=== PATIENT | female | born 1950 | race Caucasian/White ===

== ENCOUNTER 2018-01-11 22:04 | Observation (INO) | payer MEDICARE ==
[~2018-01-11] VITALS: Ht 152.4 cm; Wt 76.8 kg
[2018-01-11 22:50] LABS: HEMATOCRIT 45.9 % (37.0-47.0); HEMOGLOBIN 15.2 g/dl (12.0-16.0); IMMATURE GRANULOCYTES 0.4 % (0.0-5.0); MEAN CELL VOLUME 90.5 fL CALC (80.0-100.0); MEAN CORPUSCULAR HGB CONC 33.1 g/L CALC (32.0-36.0); NEUT# 8.19 thou/uL (2.00-7.15); RED BLOOD COUNT 5.07 mill/uL (4.20-5.60); RED CELL DISTRI WIDTH 12.9 % (11.5-15.5)
[2018-01-11] MEDS ORDERED: OMEPRAZOLE20 MG PO (22:52)
[2018-01-11] MEDS ORDERED: SPIRONOLACTONE25 MG PO (22:53)
[2018-01-11] MEDS ORDERED: MECLIZINE25 MG PO (22:53)
[2018-01-11] MEDS ORDERED: LEVOTHYROXIN50 MCG PO (22:54)
[2018-01-11] MEDS ORDERED: SIMVASTATIN40 MG PO (22:54)
[2018-01-11] MEDS ORDERED: METOPROL TAR25 MG PO (22:55)
[2018-01-11 23:09] LABS: ALBUMIN 4.9 g/dL (3.2-5.0); ALKALINE PHOSPHATASE 170 u/l (38-126); ANION GAP 17 (6-22 (CALC)); BILIRUBIN, TOTAL 0.6 mg/dL (0.0-1.4); BUN 18 mg/dL (8-23); BUN/CREATININE RATIO 15 (12-20 (CALC)); CARBON DIOXIDE 22 mmol/l (22-30); CHLORIDE 104 mmol/l (95-108); CREATININE 1.2 mg/dL (0.5-1.0); GFR 45 ML/MIN (>=60 (CALC)); GFR FOR AFR.AMER. 54 ML/MIN (>=60 (CALC)); POTASSIUM 4.2 mmol/l (3.5-5.1); SGOT/AST 26 u/l (9-36); SGPT/ALT 32 u/l (11-66); SODIUM 139 mmol/l (137-146); TOTAL PROTEIN 8.8 g/dL (6.3-8.2)
[2018-01-11 23:21] LABS: MYOGLOBIN 26 ng/mL (0 - 62)
[2018-01-12] VITALS (7 sets, daily range): BP systolic 94–110; BP diastolic 62–67
[2018-01-12 11:30] LABS: CHOLESTEROL HDL RATIO 4.8 (<4.4 (CALC)); MAGNESIUM 2.1 mg/dL (1.6-2.3)
[2018-01-13 00:54] VITALS: BP 104/64
[2018-01-13 05:04] VITALS: BP 112/77
[2018-01-13 08:13] VITALS: BP 107/67
[2018-01-13 11:30] VITALS: BP 111/61
== END 2018-01-13 13:30 | disposition home or self-care (01) ==
LOC: ED 22:04 → ED-I 23:47 → ED 23:57 → MS2 23:58
PROVIDERS: Emergency Medicine; Nurse Practitioner Family; ADMIT Internal Medicine; ATTEND Internal Medicine
PROC: 3E0234Z Introduction of Serum, Toxoid and Vaccine into Muscle, Percutaneous Approach (ICD-10-PCS; principal; 2018-01-13)
DX: R07.89 Other chest pain (principal); I16.0 Hypertensive urgency; I10 Essential (primary) hypertension; E11.9 Type 2 diabetes mellitus without complications; G31.84 Mild cognitive impairment of uncertain or unknown etiology; E03.9 Hypothyroidism, unspecified; K21.9 Gastro-esophageal reflux disease without esophagitis; Z86.79 Personal history of other diseases of the circulatory system; Z23 Encounter for immunization

== ENCOUNTER 2018-01-21 20:39 | Inpatient (IN) | payer MEDICARE ==
[~2018-01-21] VITALS: Ht 152.4 cm; Wt 76.6 kg
[~2018-01-21 20:39] MED LIST: LEVOTHYROXIN50 MCG PO; MECLIZINE25 MG PO; METOPROL TAR25 MG PO; OMEPRAZOLE20 MG PO; SIMVASTATIN40 MG PO; SPIRONOLACTONE25 MG PO
[2018-01-21 21:33] LABS: HEMATOCRIT 46.2 % (37.0-47.0); HEMOGLOBIN 15.3 g/dl (12.0-16.0); IMMATURE GRANULOCYTES 0.6 % (0.0-5.0); MEAN CELL VOLUME 90.9 fL CALC (80.0-100.0); MEAN CORPUSCULAR HGB 30.1 pG CALC (26.0-32.0); MEAN CORPUSCULAR HGB CONC 33.1 g/L CALC (32.0-36.0); NEUT# 9.04 thou/uL (2.00-7.15); RED BLOOD COUNT 5.08 mill/uL (4.20-5.60); RED CELL DISTRI WIDTH 12.3 % (11.5-15.5)
[2018-01-21] MEDS ORDERED: ASPIRIN81 MG PO (21:39)
[2018-01-21 21:45] LABS: ALBUMIN 4.7 g/dL (3.2-5.0); ALKALINE PHOSPHATASE 166 u/l (38-126); AMYLASE 97 u/l (30-110); ANION GAP 17 (6-22 (CALC)); BILIRUBIN, TOTAL 0.5 mg/dL (0.0-1.4); BUN 19 mg/dL (8-23); BUN/CREATININE RATIO 17 (12-20 (CALC)); CARBON DIOXIDE 23 mmol/l (22-30); CHLORIDE 105 mmol/l (95-108); CREATININE 1.1 mg/dL (0.5-1.0); GFR 50 ML/MIN (>=60 (CALC)); GFR FOR AFR.AMER. 60 ML/MIN (>=60 (CALC)); LIPASE 337 u/l (23-300); POTASSIUM 4.7 mmol/l (3.5-5.1); SGOT/AST 22 u/l (9-36); SGPT/ALT 25 u/l (11-66); SODIUM 141 mmol/l (137-146); TOTAL PROTEIN 8.8 g/dL (6.3-8.2)
[2018-01-21 21:57] LABS: MYOGLOBIN 19 ng/mL (0 - 62)
[2018-01-21 22:00] LABS: URINE BILIRUBIN - DIPSTICK NEGATIVE (NEGATIVE); URINE BLOOD DIPSTICK LARGE (NEGATIVE); URINE COLOR YELLOW; URINE GLUCOSE - DIPSTICK NEGATIVE (NEGATIVE); URINE KETONE TRACE mg/dL (NEGATIVE); URINE LEUK ESTERASE TRACE (NEGATIVE); URINE NITRITE - DIPSTICK NEGATIVE (Negative); URINE PROTEIN - DIPSTICK 100 mg/dL (NEG-TRACE); URINE SPECIFIC GRAVITY >=1.030; URINE UROBILINOGEN - DIPSTICK 0.2 E.U./dL (0.2)
[2018-01-21 22:13] LABS: URINE CLARITY CLEAR
[2018-01-21 22:21] LABS: URINE RBC TNTC RBC/hpf (0-5); URINE SQUAMOUS EPITHELIAL CELL MODERATE EPI/hpf (0-FEW)
[2018-01-22 05:50] VITALS: BP 126/74
[2018-01-22 08:20] VITALS: BP 107/62
[2018-01-22 11:00] LABS: IMMATURE GRANULOCYTES 0.5 % (0.0-5.0); MEAN CORPUSCULAR HGB 30.3 pG CALC (26.0-32.0); MEAN CORPUSCULAR HGB CONC 33.2 g/L CALC (32.0-36.0); NEUT# 5.93 thou/uL (2.00-7.15); RED BLOOD COUNT 4.13 mill/uL (4.20-5.60); RED CELL DISTRI WIDTH 12.6 % (11.5-15.5)
[2018-01-22 11:02] LABS: HEMATOCRIT 37.6 % (37.0-47.0); HEMOGLOBIN 12.5 g/dl (12.0-16.0)
[2018-01-22 11:14] VITALS: BP 105/64
[2018-01-22 11:14] LABS: ANION GAP 14 (6-22 (CALC)); BUN 14 mg/dL (8-23); BUN/CREATININE RATIO 15 (12-20 (CALC)); CARBON DIOXIDE 22 mmol/l (22-30); CHLORIDE 113 mmol/l (95-108); GFR 55 ML/MIN (>=60 (CALC)); GFR FOR AFR.AMER. > 60 ML/MIN (>=60 (CALC)); POTASSIUM 4.1 mmol/l (3.5-5.1); SODIUM 145 mmol/l (137-146)
[2018-01-22 15:22] VITALS: BP 112/70
[2018-01-22 20:12] VITALS: BP 121/71
[2018-01-23 00:05] VITALS: BP 128/62
[2018-01-23 03:57] VITALS: BP 133/85
[2018-01-23 06:02] LABS: HEMATOCRIT 38.8 % (37.0-47.0); HEMOGLOBIN 12.7 g/dl (12.0-16.0); IMMATURE GRANULOCYTES 0.5 % (0.0-5.0); MEAN CELL VOLUME 92.2 fL CALC (80.0-100.0); MEAN CORPUSCULAR HGB 30.2 pG CALC (26.0-32.0); MEAN CORPUSCULAR HGB CONC 32.7 g/L CALC (32.0-36.0); NEUT# 6.58 thou/uL (2.00-7.15); RED BLOOD COUNT 4.21 mill/uL (4.20-5.60); RED CELL DISTRI WIDTH 12.7 % (11.5-15.5)
[2018-01-23 06:15] LABS: ALKALINE PHOSPHATASE 108 u/l (38-126); ANION GAP 12 (6-22 (CALC)); BILIRUBIN, TOTAL 0.5 mg/dL (0.0-1.4); BUN 9 mg/dL (8-23); BUN/CREATININE RATIO 11 (12-20 (CALC)); CARBON DIOXIDE 20 mmol/l (22-30); CHLORIDE 117 mmol/l (95-108); CREATININE 0.8 mg/dL (0.5-1.0); GFR > 60 ML/MIN (>=60 (CALC)); GFR FOR AFR.AMER. > 60 ML/MIN (>=60 (CALC)); POTASSIUM 4.2 mmol/l (3.5-5.1); SGOT/AST 16 u/l (9-36); SGPT/ALT 26 u/l (11-66); SODIUM 145 mmol/l (137-146)
[2018-01-23 06:16] LABS: ALBUMIN 3.4 g/dL (3.2-5.0); TOTAL PROTEIN 6.4 g/dL (6.3-8.2)
[2018-01-23 08:00] VITALS: BP 143/73
[2018-01-23 11:23] VITALS: BP 105/64
== END 2018-01-23 15:10 | disposition home or self-care (01) | DRG 445 ==
LOC: ED 20:39 → ED-I 01-22 04:00 → ED 01-22 05:00 → MS2 01-22 05:01
PROVIDERS: Emergency Medicine; Surgery; ADMIT General Practice; ATTEND General Practice
DX: K80.10 Calculus of gallbladder with chronic cholecystitis without obstruction (principal); E87.2 Acidosis; I16.0 Hypertensive urgency; I10 Essential (primary) hypertension; E11.9 Type 2 diabetes mellitus without complications; K21.9 Gastro-esophageal reflux disease without esophagitis; E03.9 Hypothyroidism, unspecified; M81.0 Age-related osteoporosis without current pathological fracture; N28.9 Disorder of kidney and ureter, unspecified; Z86.79 Personal history of other diseases of the circulatory system
CPT/HCPCS: S0164

== ENCOUNTER 2019-12-31 14:47 | Inpatient (IN) | payer MEDICARE ==
[~2019-12-31] VITALS: Ht 152.4 cm; Wt 80.4 kg
[~2019-12-31 14:47] MED LIST changes: +ASPIRIN81 MG PO; -LEVOTHYROXIN50 MCG PO; -METOPROL TAR25 MG PO; -OMEPRAZOLE20 MG PO; -SIMVASTATIN40 MG PO; -SPIRONOLACTONE25 MG PO
--- NOTE | 2019-12-31 14:47 | NUR ---
PT TO ROOM 14 VIA WHEELCHAIR ACCOMPANIED BY DAUGHTER
--- NOTE | 2019-12-31 15:12 | NUR ---
UNABLE TO OBTAIN MED LIST DAUGHTER AND PATIENT BOTH STATE THAT THEY ARE UNSURE OF MEDICATIONS AND DOSAGES.
[2019-12-31 15:59] LABS: HEMATOCRIT 42.8 % (37.0-47.0); HEMOGLOBIN 13.5 g/dl (12.0-16.0); IMMATURE GRANULOCYTES 0.4 % (0.0-5.0); MEAN CELL VOLUME 91.6 fL CALC (80.0-100.0); MEAN CORPUSCULAR HGB 28.9 pG CALC (26.0-32.0); MEAN CORPUSCULAR HGB CONC 31.5 g/dL CAL (32.0-36.0); NEUT# 14.21 thou/uL (2.00-7.15); RED BLOOD COUNT 4.67 mill/uL (4.20-5.60); RED CELL DISTRI WIDTH 13.3 % (11.5-15.5)
[2019-12-31 16:20] LABS: ALKALINE PHOSPHATASE 145 u/l (38-126); AMYLASE 1067 u/l (30-110); BUN 17 mg/dL (8-23); BUN/CREATININE RATIO 17 (12-20 (CALC)); CHLORIDE 103 mmol/l (95-108); GFR 55 ML/MIN (>=60 (CALC)); GFR FOR AFR.AMER. > 60 ML/MIN (>=60 (CALC)); SODIUM 139 mmol/l (137-146)
[2019-12-31 16:22] LABS: ALBUMIN 4.6 g/dL (3.2-5.0); ANION GAP 15 (6-22 (CALC)); BILIRUBIN, TOTAL 1.1 mg/dL (0.0-1.4); CARBON DIOXIDE 25 mmol/l (22-30); SGOT/AST 88 u/l (9-36)
[2019-12-31 16:31] LABS: LIPASE 11316 u/l (23-300)
[2019-12-31] MEDS ORDERED: OMEPRAZOLE20 MG PO (18:48)
[2019-12-31] MEDS ORDERED: SPIRONOLACTONE25 MG PO (18:48)
[2019-12-31] MEDS ORDERED: METOPROL TAR25 MG PO (18:49)
[2019-12-31] MEDS ORDERED: SIMVASTATIN40 MG PO (18:49)
[2019-12-31] MEDS ORDERED: LEVOTHYROXIN50 MCG PO (18:49)
--- NOTE | 2019-12-31 18:51 | NUR ---
RECEIVED REPORT FROM MERARY GARCIA. PT ADMITTED WAITING ON NURSE TO ARRIVE ON FLOOR TO TAKE PT.ETA 20:00-20:30
--- NOTE | 2019-12-31 19:50 | NUR ---
STILL WAITING ON NURSE/REPORT
--- NOTE | 2019-12-31 20:57 | NUR ---
BED ASSIGNMENT PROVIDED TO ED
--- NOTE | 2019-12-31 20:57 | NUR ---
BED NUMBER RECIEVED
--- NOTE | 2019-12-31 21:20 | NUR ---
CALLED FLOOR FOR REPORT. NURSE WILL CALL BACK
--- NOTE | 2019-12-31 21:35 | NUR ---
TELEPHONE REPORT RECEIVED FROM Emy ARANGO RN, ROOM 261 PREPARED TO RECEIVE PT
--- NOTE | 2019-12-31 21:37 | NUR ---
Admission Note Report Given to: MERARY KONG Transported by: X Wheelchair Stretcher Transported with: X Nurse Transporter X Patent IV O2 X Lumber Inspector Location: ICU X MS[facility]
--- NOTE | 2019-12-31 21:50 | NUR ---
PT ARRIVES TO UNIT VIA WC, ACCOMPANIED BY Emy ARANGO RN. PT AMBULATORY TO BED. ORIENTED TO UNIT, ROOM, CALL [facility], BED/TV/LIGHT CONTROLS.
[2019-12-31 21:55] VITALS: BP 100/61
--- NOTE | 2019-12-31 22:00 | NUR ---
ADMISSION ASSESMENT COMPLETE. PT DENIES ANY PAIN OR DISCOMFORT AT THIS TIME. CALL DYLAN CARRERA, AGREEES TO CALL PRN.
[2019-12-31 22:14] LABS: URINE BILIRUBIN - DIPSTICK NEGATIVE (NEGATIVE); URINE BLOOD DIPSTICK TRACE-INTACT (NEGATIVE); URINE COLOR YELLOW; URINE GLUCOSE - DIPSTICK NEGATIVE (NEGATIVE); URINE KETONE NEGATIVE (NEGATIVE); URINE LEUK ESTERASE NEGATIVE (NEGATIVE); URINE NITRITE - DIPSTICK NEGATIVE (Negative); URINE PH 7.5 (4.5-8.0); URINE PROTEIN - DIPSTICK NEGATIVE (NEG-TRACE); URINE UROBILINOGEN - DIPSTICK 0.2 E.U./dL (0.2)
[2020-01-01 00:30] VITALS: BP 99/59
--- NOTE | 2020-01-01 02:00 | NUR ---
PT APPEARS TO BE SLEEPING COMFORTABLY, RESPIRATIONS REGULAR AND UNLABORED. NO APPARENT DISTRESS. CALL [facility] WITHIN REACH.
[2020-01-01 03:55] VITALS: BP 101/63
[2020-01-01 05:16] LABS: MEAN CELL VOLUME 93.2 fL CALC (80.0-100.0); MEAN CORPUSCULAR HGB 29.1 pG CALC (26.0-32.0); MEAN CORPUSCULAR HGB CONC 31.3 g/dL CAL (32.0-36.0); RED BLOOD COUNT 3.95 mill/uL (4.20-5.60); RED CELL DISTRI WIDTH 13.5 % (11.5-15.5)
[2020-01-01 05:20] LABS: ALKALINE PHOSPHATASE 114 u/l (38-126); AMYLASE 472 u/l (30-110); ANION GAP 9 (6-22 (CALC)); BUN 17 mg/dL (8-23); BUN/CREATININE RATIO 19 (12-20 (CALC)); CARBON DIOXIDE 25 mmol/l (22-30); CHLORIDE 108 mmol/l (95-108); CREATININE 0.9 mg/dL (0.5-1.0); GFR > 60 ML/MIN (>=60 (CALC)); GFR FOR AFR.AMER. > 60 ML/MIN (>=60 (CALC)); POTASSIUM 3.9 mmol/l (3.5-5.1); SGOT/AST 44 u/l (9-36); SODIUM 138 mmol/l (137-146)
[2020-01-01 05:24] LABS: HEMATOCRIT 36.8 % (37.0-47.0); HEMOGLOBIN 11.5 g/dl (12.0-16.0)
[2020-01-01 05:28] LABS: ALBUMIN 3.4 g/dL (3.2-5.0); LIPASE 3309 u/l (23-300); TOTAL PROTEIN 6.2 g/dL (6.3-8.2)
--- NOTE | 2020-01-01 07:15 | NUR ---
REPORT RECEIVED FROM MERARY KONG. PT RESTING IN BED SEMI FOWLERS; ALERT AND ORIENTED. DENIES PAIN INCLUDING ABDOMINAL PAIN; TENDERNESS ON PALPATION. RESPIRATIONS EVEN AND UNLABORED ON ROOM AIR. IV FLUIDS INFUSING WITHOUT DIFFCULTY; IV SITE APPEARS HEALTHY. PLAN OF CARE REVIEWED. PT ENCOURAGED TO VERBALIZE CONCERNS. STATES UNDERSTANDING. SAFETY MEASURES IN PLACE. CALL LIGHT WITHIN REACH.
--- NOTE | 2020-01-01 09:25 | NUR ---
PT OFF UNIT VIA WHEELCHAIR FOR ABDOMINAL ULTRASOUND. DAUGHTER AT BEDSIDE.
--- NOTE | 2020-01-01 10:05 | NUR ---
BACK TO ROOM IN STABLE CONDITION; ASSISTED SHOWER PROVIDED WITH DAUGHTER IN ROOM. IV FLUIDS RECONNECTED AT 150 ML/HR PER ORDER. DIET ADVANCED TO CLEAR LIQUID. PT INSTRUCTED TO REPORT ANY PAIN OR NAUSEA AFTER EATING.
[2020-01-01 10:40] VITALS: BP 114/67
[2020-01-01 15:15] VITALS: BP 114/64
--- NOTE | 2020-01-01 16:49 | NUR ---
DR. ALICEA AT BEDSIDE FOR CONSULT. DAUGHTER AT BEDSIDE. DISCUSSED PLAN IS GREEK.
--- NOTE | 2020-01-01 18:20 | NUR ---
TYLENOL GIVEN FOR 8/10 HEADACHE AND COOL CLOTH PROVIDED. PT SITTING UP EATING CLEAR LIQUID DINNER; TOLERATED DIET WELL FOR ALL MEALS; DENIES ANY PAIN OR NAUSEA. DIET ADVANCED TO FULL LIQUID.
[2020-01-01 18:50] VITALS: BP 137/73
[2020-01-01 23:00] VITALS: BP 98/63
[2020-01-02 04:00] VITALS: BP 122/71
[2020-01-02 05:55] LABS: HEMATOCRIT 38.2 % (37.0-47.0); HEMOGLOBIN 11.5 g/dl (12.0-16.0); MEAN CORPUSCULAR HGB 28.9 pG CALC (26.0-32.0); MEAN CORPUSCULAR HGB CONC 30.1 g/dL CAL (32.0-36.0); RED BLOOD COUNT 3.98 mill/uL (4.20-5.60)
[2020-01-02 06:19] LABS: ANION GAP 9 (6-22 (CALC)); BUN 9 mg/dL (8-23); BUN/CREATININE RATIO 11 (12-20 (CALC)); CARBON DIOXIDE 21 mmol/l (22-30); CHLORIDE 113 mmol/l (95-108); CREATININE 0.8 mg/dL (0.5-1.0); GFR > 60 ML/MIN (>=60 (CALC)); GFR FOR AFR.AMER. > 60 ML/MIN (>=60 (CALC)); LIPASE 941 u/l (23-300); POTASSIUM 3.8 mmol/l (3.5-5.1); SODIUM 139 mmol/l (137-146)
[2020-01-02 07:20] VITALS: BP 144/77
--- NOTE | 2020-01-02 07:20 | NUR ---
ASSESSMENT IS COMPLETED: IV SITE IS FREE FROM REDNESS OR EDEMA. HR IS REG,PULSES ARE STRONG X4, ABD IS SOFT WITH ACTIVE BS, BREATH SOUNDS ARE CLEAR,BILATERALLY. TELE MONITOR IN PLACE.
[2020-01-02 10:40] VITALS: BP 119/74
--- NOTE | 2020-01-02 12:00 | NUR ---
PT IS RELAXING AND VISITING WITH FAMILY NO DISTRESS NOTED. IV SITE IS FREE FROM REDNESS OR EDEMA.
[2020-01-02 14:50] VITALS: BP 145/90
--- NOTE | 2020-01-02 16:00 | NUR ---
PT IS RELAXING IN BED WITH NO DISTRESS NOTED. IV SITE IS FREE FROM REDNESS OR EDEMA.
--- NOTE | 2020-01-02 17:41 | NUR ---
DR ALICEA IN TO VISIT WITH PT AND FAMILY , WILL DO SURGERY IN THE AM. WILL BE NPO AFTER MIDNIGHT.
[2020-01-02 19:00] VITALS: BP 169/89
[2020-01-03] VITALS (12 sets, daily range): BP systolic 120–149; BP diastolic 60–86
--- NOTE | 2020-01-03 04:26 | NUR ---
PT RESTING IN BED WITH DAUGHTER AT BEDSIDE. DAUGHTER ASSISTING RESIDENT TO BATHROOM. RAPID SWAB COMPLETED AND RETURNED NEGATIVE. DUE TO HAVE LAP COLY DONE IN AM AT 9AM. MAINTAINS NPO PER ORDERS.
--- NOTE | 2020-01-03 05:00 | NUR ---
PT RESTING WELL. CONTINUES NPO FOR LAP COLY IN AM.
[2020-01-03 05:46] LABS: HEMATOCRIT 36.3 % (37.0-47.0); HEMOGLOBIN 11.2 g/dl (12.0-16.0); MEAN CELL VOLUME 92.6 fL CALC (80.0-100.0); MEAN CORPUSCULAR HGB 28.6 pG CALC (26.0-32.0); MEAN CORPUSCULAR HGB CONC 30.9 g/dL CAL (32.0-36.0); RED BLOOD COUNT 3.92 mill/uL (4.20-5.60); RED CELL DISTRI WIDTH 13.6 % (11.5-15.5)
[2020-01-03 06:09] LABS: ANION GAP 10 (6-22 (CALC)); BUN 4 mg/dL (8-23); BUN/CREATININE RATIO 5 (12-20 (CALC)); CARBON DIOXIDE 22 mmol/l (22-30); CHLORIDE 109 mmol/l (95-108); CREATININE 0.7 mg/dL (0.5-1.0); GFR > 60 ML/MIN (>=60 (CALC)); GFR FOR AFR.AMER. > 60 ML/MIN (>=60 (CALC)); LIPASE 422 u/l (23-300); POTASSIUM 3.9 mmol/l (3.5-5.1); SODIUM 137 mmol/l (137-146)
--- NOTE | 2020-01-03 06:17 | NUR ---
PT RESTING WELL IN BED. THIS NURSE ASSISTED PT TO READJUST IN BED.
--- NOTE | 2020-01-03 07:30 | NUR ---
ASSESSMENT IS COMPLETEED: IV SITE IS FREE FROM REDNESS OR EDEMA. HR IS REG,PULSES ARE STRONG X4, ABD IS SOFT WITH ACTIVE BS. BREATH SOUNSD ARE CLEAR BILATERALLY. TELE MONITOR IN PLACE. GETTING READY FOR OR. FAMILY IN THE ROOM.
--- NOTE | 2020-01-03 07:40 | NUR ---
PT SIGNED CONSENT WITH FAMILY IN THE ROOM. FOR LAP OR OPEN CHOLEY. ALL PAPERS READY FOR THE OR.
--- NOTE | 2020-01-03 11:24 | NUR ---
PT RETURNED FROMOR VIA STRETCHER DRESSING ON ABD IS CDI. NO DISTRESS NOTED.
--- NOTE | 2020-01-03 12:00 | NUR ---
PT IS RELAXING IN BED WITH NO DISTRESS NOTED. FAMILY IN THE ROOM.
--- NOTE | 2020-01-03 16:00 | NUR ---
PT IS RESTING IN BED WITH NO DISTRESS NOTED. IV SITE IS FREE FROM REDNESS OR EDEMA. FAMILY IN THE ROOM. CONTINUE TO OSBERVE AND MONITOR.
--- NOTE | 2020-01-03 19:30 | NUR ---
PROVIDED STAND BY ASSIST FOR PT TO BSC AND BACK TO BED. ASSISTED PT TO GET COMFORTABLE IN BED. PHYSICAL ASSESMENT COMPLETE. PLAN OF CARE REVIEWED. PT VERBALIZES UNDERSTANDING AND DENIES QUESTIONS. PERSONAL ITEMS WITHIN REACH. BED LOCKED IN LOW POSITION W/ BEDRAILS UP X2. CALL [facility] WITHIN REACH, AGREES TO CALL PRN.
--- NOTE | 2020-01-03 20:55 | NUR ---
FRESH WATER PROVIDED. DINNER TRAY CLEARED FROM ROOM. SCHEDULED MEDICATIONS ADMINISTERED, SEE E-MAR. OFFERED PT PRN ANALGESIC, PT DECLINES, DENIES PAIN OR DISCOMFORT. PERSONAL ITEMS WITHIN REACH. BED LOCKED IN LOW POSITION W/ BEDRAILS UP X2. CALL [facility] WITHIN REACH, AGREES TO CALL PRN.
[2020-01-04 00:15] VITALS: BP 149/85
--- NOTE | 2020-01-04 00:15 | NUR ---
ROUTINE VS CHECK DONE, VS STABLE. PT AFEBRILE. CONTINUES TO DENY PAIN OR DISCOMFORT. DENIES NEEDS AT THIS TIME. PERSONAL ITEMS WITHIN REACH. BED LOCKED IN LOW POSITION W/ BEDRAILS UP X2. CALL [facility] WITHIN REACH, AGREES TO CALL PRN.
--- NOTE | 2020-01-04 03:19 | NUR ---
PT APPEARS TO BE SLEEPING COMFORTABLY, NO APPARENT DISTRESS. RESPIRATIONS REGULAR AND UNLABORED. PERSONAL ITEMS REMAIN WITHIN REACH. BED REMAINS LOCKED IN LOW POSITION W/ BEDRAILS UP X2. CALL [facility] REMAINS WITHIN REACH.
[2020-01-04 04:39] VITALS: BP 173/93
[2020-01-04 05:27] LABS: HEMATOCRIT 37.8 % (37.0-47.0); HEMOGLOBIN 11.7 g/dl (12.0-16.0); MEAN CELL VOLUME 92.6 fL CALC (80.0-100.0); MEAN CORPUSCULAR HGB 28.7 pG CALC (26.0-32.0); RED BLOOD COUNT 4.08 mill/uL (4.20-5.60); RED CELL DISTRI WIDTH 13.9 % (11.5-15.5)
[2020-01-04 05:48] LABS: ANION GAP 13 (6-22 (CALC)); BUN 8 mg/dL (8-23); BUN/CREATININE RATIO 9 (12-20 (CALC)); CARBON DIOXIDE 22 mmol/l (22-30); CHLORIDE 106 mmol/l (95-108); CREATININE 0.9 mg/dL (0.5-1.0); GFR > 60 ML/MIN (>=60 (CALC)); GFR FOR AFR.AMER. > 60 ML/MIN (>=60 (CALC)); LIPASE 96 u/l (23-300); MAGNESIUM 1.6 mg/dL (1.6-2.3); SODIUM 136 mmol/l (137-146)
--- NOTE | 2020-01-04 06:12 | NUR ---
SCHEDULED MED ADMINISTERED, SEE E-MAR. PT DENIES PAIN OR DISCOMFORT. DENIES NEEDS AT THIS TIME. ITEMS REMAIN WITHIN REACH. BED REMAINS LOCKED IN LOW POSITION W/ BEDRAILS UP X2. CALL [facility] REMA[facility] WITHIN REACH, AGREES TO CALL PRN.
[2020-01-04 07:30] VITALS: BP 189/84
--- NOTE | 2020-01-04 07:30 | NUR ---
ASSESSMENT IS COMPLETD: IV SITE IS FREE FROM REDNESS OR EDEMA. HR IS REG,PULSES ARE STRONG X4, ABD IS SOFT WITH ACTIVE BS. DRESSING ON ABD IS CDI. BREATH SOUNDS ARE CLEAR,BILATERALLY, CONTINUE TO OBSERVE AND MONITOR.
[2020-01-04 11:00] VITALS: BP 126/69
--- NOTE | 2020-01-04 12:00 | NUR ---
PT IS RELAXING IN BED WITH NO DISTRESS NOTED. IV SITE IS FREE FROM REDNESS OR EDEMA.
[2020-01-04] MEDS ORDERED: LORTAB 5/3255 MG PO (14:48)
[2020-01-04] MEDS ORDERED: ZOFRAN4 MG/TAB PO (14:48)
[2020-01-04] MEDS ORDERED: AMOX/K CLAV875 M1 PO (14:48)
--- NOTE | 2020-01-04 15:07 | NUR ---
PT IS BEING DISCHARGED IV SITE DISCONTINUED, CATHETER INTACT. TELE TAKEN OFF.
--- NOTE | 2020-01-04 15:28 | NUR ---
PT RECEIVED DISCHARGE INSTRUCTIONS VERBALIZED UNDERSTANDING. FAMILY IN THE ROOM. Discharge instructions given. Patient verbalizes understanding of same. Discharged in stable condition via Wheelchair to Home with family. All belongings sent with pt.
--- NOTE | 2020-01-04 18:12 | NUR ---
PT FAMILY CALLED AND INQUIRED ABOUT A FEVER SHE IS HAVING. 102. PT DID NOT DRINK VERY MUCH. ENCOURAGED TO DRINK FLUIDS. ALREADY RECEIVED TYLENOL. WILL BRING TO THE HOSPITAL IF IT CONTINUES TO BE ELEVATED.
== END 2020-01-04 15:25 | disposition home or self-care (01) | DRG 419 ==
LOC: ED 14:47 → ED-I 17:29 → ED 17:54 → MS2 17:55 → ICU 17:55 → MS2 21:53
PROVIDERS: Nurse Practitioner; Student in an Organized Health Care Education/Training Program; ADMIT Internal Medicine; ATTEND Internal Medicine
PROC: 0FT44ZZ Resection of Gallbladder, Percutaneous Endoscopic Approach (ICD-10-PCS; principal; 2020-01-03)
PROC: 0FC94ZZ Extirpation of Matter from Common Bile Duct, Percutaneous Endoscopic Approach (ICD-10-PCS; 2020-01-03)
PROC: BF001ZZ Plain Radiography of Bile Ducts using Low Osmolar Contrast (ICD-10-PCS; 2020-01-03)
DX: K85.10 Biliary acute pancreatitis without necrosis or infection (principal); K80.70 Calculus of gallbladder and bile duct without cholecystitis without obstruction; I10 Essential (primary) hypertension; E03.9 Hypothyroidism, unspecified; K21.9 Gastro-esophageal reflux disease without esophagitis; Z86.79 Personal history of other diseases of the circulatory system; Z20.828 Contact with and (suspected) exposure to other viral communicable diseases
CPT/HCPCS: J0131; J1650; J2710; Q9967